=== PATIENT | female | born 1955 | race Caucasian/White ===

== ENCOUNTER 2019-07-24 18:50 | Emergency (ER) | payer MEDICARE, BC ==
[2019-07-24] MEDS ORDERED: Ondansetron 4 MG Tab.DIS PO ONE (18:55)
[2019-07-24] MEDS ORDERED: Lactated Ringers 1,000 ML IV SCH (19:15)
--- NOTE | 2019-07-24 19:28 | EDM.PDOC ---
ED HPI GENERAL MEDICAL PROBLEM - General Chief Complaint: Fever Stated Complaint: HIGH FEVER, VOMITING Time Seen by Provider: 07/24/19 19:15 Source of Information: Reports: Patient, Old Records, RN History Limitations: Reports: No Limitations - History of Present Illness INITIAL COMMENTS - FREE TEXT/NARRATIVE: 64 yo female presents with fever and loose stools for about a week. Has not been to the clinic for this. Denies dizziness with standing. No cough or urinary sx's. Has been taking acetaminophen regularly. Had recent colon surgery in [facility]) to reconnect a portion of her large intestine. Stools have been loose since then. Talked with her surgeon by phone who felt this was likely viral. Onset: Gradual Duration: Week(s): (1), Constant Location: Reports: Generalized Quality: Reports: Ache (mild LLQ, ? due to her surgery) Severity: Moderate Improves with: Reports: Medication Worsens with: Reports: Other (unknown) Context: Reports: Other (See HPI) Associated Symptoms: Reports: Fever/Chills, Malaise, Other (loose stools). Denies: Chest Pain, Cough, Headaches, Nausea/Vomiting, Rash, Shortness of Breath Treatments FUR GRADER: Reports: Acetaminophen - Related Data Allergies Allergy/AdvReac Type Severity Reaction Status Date / Time propoxyphene [From Darvon] Allergy Vomiting Verified 07/24/19 19:00 Home Meds: Home Meds Acetaminophen [Non-Aspirin Extra Strength] 1,000 mg PO Q6H 07/24/19 [History] Past Medical History Gastrointestinal History: Reports: Colon Polyp, Diverticulosis - Past Surgical History GI Surgical History: Reports: Colon, Colonoscopy, Colostomy, Other (See Below) Other GI Surgeries/Procedures: colostomy reversal 07/13/2019 Female Surgical History: Reports: Oophorectomy Social & Family History - Tobacco Use Smoking Status *Q: Never Smoker - Caffeine Use Caffeine Use: Reports: Coffee - Recreational Drug Use Recreational Drug Use: Yes Recreational Drug Type: Reports: Marijuana/Hashish Recreational Drug Use Frequency: Daily ED ROS GENERAL - Review of Systems Review Of Systems: See Below Constitutional: Reports: No Symptoms, Fever, Malaise, Weakness, Fatigue. Denies : Diaphoresis HEENT: Reports: No Symptoms Respiratory: Reports: No Symptoms Cardiovascular: Reports: No Symptoms Endocrine: Reports: No Symptoms GI/Abdominal: Reports: Abdominal Pain (LLQ mild), Diarrhea. Denies: Black Stool , Bloody Stool, Constipation, Distension, Flatus, Hematemesis, Hematochezia, Melena, Nausea, Vomiting : Reports: No Symptoms Musculoskeletal: Reports: No Symptoms Skin: Reports: No Symptoms Neurological: Reports: No Symptoms ED EXAM, SEPSIS - Physical Exam Exam: See Below Exam Limited By: No Limitations General Appearance: Alert, WD/WN, No Apparent Distress Eye Exam: Bilateral Eye: Normal Inspection Ears: Normal External Exam, Normal Canal, Hearing Grossly Normal, Normal TMs Nose: Normal Inspection, No Blood Throat/Mouth: Normal Inspection, Normal Lips, Normal Oropharynx, Normal Voice, No Airway Compromise Head: Atraumatic, Normocephalic Neck: Normal Inspection Respiratory/Chest: No Respiratory Distress, Lungs Clear, Normal Breath Sounds, No Accessory Muscle Use Cardiovascular: Regular Rate, Rhythm, No Edema GI/Abdominal Exam: Normal Bowel Sounds, Soft, Non-Tender, No Distention, Other ( recent surgical would present, no redness.) Back: Normal Inspection. No: CVA Tenderness (R), CVA Tenderness (L) Extremities: Normal Inspection, Normal Range of Motion, Non-Tender, No Pedal Edema Neurological: Alert, Oriented, CN II-XII Intact, Normal Cognition, No Motor/ Sensory Deficits Psychiatric: Normal Affect, Normal Mood Skin: Warm, Dry, Intact, Normal Color, No Rash Lymphatic: Bilateral: No Adenopathy Course - Vital Signs Text/Narrative:: Dr. Espinoza accepted at [facility] @ 2150h, Surgeon. Last Recorded V/S: Last Vital Signs Temp 37.2 C 07/24/19 21:12 Pulse 110 H 07/24/19 21:12 Resp 18 07/24/19 21:12 BP 127/66 07/24/19 21:12 Pulse Ox 94 L 07/24/19 21:12 - Orders/Labs/Meds Orders: Active Orders 24 hr Category Date Time Status CULTURE BLOOD [BC] Stat Lab 07/24/19 19:40 Received CULTURE BLOOD [BC] Stat Lab 07/24/19 19:50 Received CULTURE URINE [RM] Stat Lab 07/24/19 21:49 Ordered Ciprofloxacin in D5W [Cipro in D5W 400 MG/200 ML] 400 Med 07/24/19 21:50 Ordered mg Premix Bag 1 bag IV ONETIME Iopamidol [Isovue-300 (61%)] Med 07/24/19 20:30 Active 92 ml IV . DIRECTED Lactated Ringers [Ringers, Lactated] 1,000 ml Med 07/24/19 19:15 Active IV BOLUS NS + KCl 20mEq/L [Normal Saline with 20 mEq KCl] 1,000 Med 07/24/19 21:15 Active ml IV ASDIRECTED Potassium Chloride [KCL 20 MEQ in Water 100 ML] 20 meq Med 07/24/19 20:04 Active Premix Bag 1 bag IV ONETIME Sodium Chloride 0.9% [Normal Saline] 70 ml Med 07/24/19 20:30 Active IV ASDIRECTED metroNIDAZOLE/Normal Saline [Flagyl 500 MG in NS 100 ML Med 07/24/19 21:33 Active ] 500 mg Premix Bag 1 bag IV ONETIME Medication Orders Lactated Ringer's (Ringers, Lactated) 1,000 mls @ 1,000 mls/hr IV BOLUS [facility] Last Admin: 07/24/19 19:33 Dose: 1,000 mls/hr Potassium Chloride 20 meq/ (Premix) 100 mls @ 50 mls/hr IV ONETIME ONE Stop: 07/24/19 22:03 Last Admin: 07/24/19 20:27 Dose: 50 mls/hr Sodium Chloride (Normal Saline) 70 mls @ 3.5 mls/sec IV ASDIRECTED [facility] Last Admin: 07/24/19 20:33 Dose: 3 mls/sec Potassium Chloride/Sodium Chloride (Normal Saline With 20 Meq Kcl) 1,000 mls @ 150 mls/hr IV ASDIRECTED [facility] Metronidazole 500 mg/ Premix 100 mls @ 100 mls/hr IV ONETIME ONE Stop: 07/24/19 22:32 Last Admin: 07/24/19 21:48 Dose: 100 mls/hr Ciprofloxacin/Dextrose 400 mg/ (Premix) 200 mls @ 200 mls/hr IV ONETIME ONE Stop: 07/24/19 22:49 Iopamidol (Isovue-300 (61%)) 92 ml IV . DIRECTED [facility] Last Admin: 07/24/19 20:33 Dose: 92 ml Labs: Laboratory Tests 07/24/19 07/24/19 07/24/19 Range/Units 19:32 19:32 19:32 WBC 20.3 H (4.5-11.0) K/uL RBC 3.58 (3.30-5.50) M/uL Hgb 10.8 L (12.0-15.0) g/dL Hct 33.1 L (36.0-48.0) % MCV 93 (80-98) fL MCH 30 (27-31) pg MCHC 33 (32-36) % Plt Count 495 H (150-400) K/uL Sodium 134 L (140-148) mmol/L Potassium 2.8 L* (3.6-5.2) mmol/L Chloride 96 L (100-108) mmol/L Carbon Dioxide 23 (21-32) mmol/L Anion Gap 17.8 H (5.0-14.0) mmol/L BUN 8 (7-18) mg/dL Creatinine 0.7 (0.6-1.0) mg/dL Est Cr Clr Drug Dosing 68.27 mL/min Estimated GFR (MDRD) > 60 (>60) Glucose 129 H (74-106) mg/dL Lactic Acid 1.2 (0.4-2.0) mmol/L Calcium 8.1 L (8.5-10.1) mg/dL Magnesium (1.8-2.4) mg/dL Urine Color (YELLOW) Urine Appearance (CLEAR) Urine pH (5.0-8.0) Ur Specific [place] (1.008-1.030) Urine Protein (NEGATIVE) mg/dL Urine Glucose (UA) (NEGATIVE) mg/dL Urine Ketones (NEGATIVE) mg/dL Urine Occult Blood (NEGATIVE) Urine Nitrite (NEGATIVE) Urine Bilirubin (NEGATIVE) Urine Urobilinogen (0.2-1.0) EU/dL Ur Leukocyte Esterase (NEGATIVE) Urine RBC (0-5) Urine WBC (0-5) Ur Epithelial Cells Amorphous Sediment Urine Bacteria Urine Mucus 07/24/19 07/24/19 Range/Units 20:04 20:13 WBC (4.5-11.0) K/uL RBC (3.30-5.50) M/uL Hgb (12.0-15.0) g/dL Hct (36.0-48.0) % MCV (80-98) fL MCH (27-31) pg MCHC (32-36) % Plt Count (150-400) K/uL Sodium (140-148) mmol/L Potassium (3.6-5.2) mmol/L Chloride (100-108) mmol/L Carbon Dioxide (21-32) mmol/L Anion Gap (5.0-14.0) mmol/L BUN (7-18) mg/dL Creatinine (0.6-1.0) mg/dL Est Cr Clr Drug Dosing mL/min Estimated GFR (MDRD) (>60) Glucose (74-106) mg/dL Lactic Acid (0.4-2.0) mmol/L Calcium (8.5-10.1) mg/dL Magnesium 1.7 L (1.8-2.4) mg/dL Urine Color Yellow (YELLOW) Urine Appearance Cloudy A (CLEAR) Urine pH 6.0 (5.0-8.0) Ur Specific [place] 1.020 (1.008-1.030) Urine Protein 100 H (NEGATIVE) mg/dL Urine Glucose (UA) Negative (NEGATIVE) mg/dL Urine Ketones 40 H (NEGATIVE) mg/dL Urine Occult Blood Moderate H (NEGATIVE) Urine Nitrite Negative (NEGATIVE) Urine Bilirubin Small H (NEGATIVE) Urine Urobilinogen 0.2 (0.2-1.0) EU/dL Ur Leukocyte Esterase Small H (NEGATIVE) Urine RBC 5-10 H (0-5) Urine WBC 20-30 H (0-5) Ur Epithelial Cells Few Amorphous Sediment Not seen Urine Bacteria Many Urine Mucus Few Meds: Medications Generic Name Dose Route Start Last Admin Trade Name Freq PRN Reason Stop Dose Admin Lactated Ringer's 1,000 mls @ 1,000 mls/hr 07/24/19 19:15 07/24/19 19:33 Ringers, Lactated IV 1,000 mls/hr BOLUS ROMAN Administration Potassium Chloride 20 meq/ 100 mls @ 50 mls/hr 07/24/19 20:04 07/24/19 20:27 Premix IV 07/24/19 22:03 50 mls/hr ONETIME ONE Administration Sodium Chloride 70 mls @ 3.5 mls/sec 07/24/19 20:30 07/24/19 20:33 Normal Saline IV 3 mls/sec ASDIRECTED ROMAN Administration Potassium Chloride/Sodium Chloride 1,000 mls @ 150 mls/hr 07/24/19 21:15 Normal Saline With 20 Meq Kcl IV ASDIRECTED ROMAN Metronidazole 500 mg/ Premix 100 mls @ 100 mls/hr 07/24/19 21:33 07/24/19 21: 48 IV 07/24/19 22:32 100 mls/hr ONETIME ONE Administration Ciprofloxacin/Dextrose 400 mg/ 200 mls @ 200 mls/hr 07/24/19 21:50 Premix IV 07/24/19 22:49 ONETIME ONE Iopamidol 92 ml 07/24/19 20:30 07/24/19 20:33 Isovue-300 (61%) IV 92 ml . DIRECTED ROMAN Administration Discontinued Medications Generic Name Dose Route Start Last Admin Trade Name Freq PRN Reason Stop Dose Admin Lidocaine HCl 2 ml 07/24/19 20:08 07/24/19 20:28 Xylocaine-Mpf 1% INJECT 07/24/19 20:09 2 ml ONETIME ONE Administration Ondansetron HCl 4 mg 07/24/19 18:55 07/24/19 19:33 Zofran Odt PO 07/24/19 18:56 4 mg ONETIME ONE Administration Sodium Chloride 10 ml 07/24/19 20:17 07/24/19 20:33 Saline Flush FLUSH 07/24/19 20:18 10 ml ONETIME ONE Administration - Radiology Interpretation Free Text/Narrative:: CT abd/pelvis with IV contrast-IMPRESSION: 1. Status post rectosigmoid surgery with wide dehiscence at the anastomosis with direct communication to a large pelvic abscess measuring up to 15.3 centimeters in maximal diameter. Results called to Dr. Jensen at 2113 on 07/24/[address] note that all CT scans at this facility use dose modulation, iterative reconstruction, and/or weight-based dosing when appropriate to reduce radiation dose to as low as reasonably achievable. Dictated by Anibal Parra MD @ Jul 24 2019 9:02PM CT Results Date: 07/24/19 CT Results Time: 21:16 Departure - Departure Time of Disposition: 22:15 Disposition: DC/Tfer to Acute Hospital 02 Condition: Poor Clinical Impression: Pelvic abscess, Hypokalemia Elevated WBC count Qualifiers: Leukocytosis type: unspecified Qualified Code(s): D72.829 - Elevated white blood cell count, unspecified - Discharge Information *PRESCRIPTION DRUG MONITORING PROGRAM REVIEWED*: Not Applicable *COPY OF PRESCRIPTION DRUG MONITORING REPORT IN PATIENT FERNANDO: Not Applicable Referrals: PCP,None [Primary Care Provider] - Forms: ED Department Discharge Sepsis Event Note - Evaluation Sepsis Screening Result: No Definite Risk - Focused Exam Vital Signs: Vital Signs Temp Pulse Resp BP Pulse Ox 07/24/19 21:12 37.2 C 110 H 18 127/66 94 L 07/24/19 20:42 109 H 17 143/69 H 95 07/24/19 19:01 37.7 C 121 H 17 113/56 L 95 Date Exam was Performed: 07/24/19 Time Exam was Performed: 21:52 - My Orders Last 24 Hours: My Active Orders 07/24/19 19:15 Lactated Ringers [Ringers, Lactated] 1,000 ml IV BOLUS 07/24/19 19:40 CULTURE BLOOD [BC] Stat 07/24/19 19:50 CULTURE BLOOD [BC] Stat 07/24/19 20:04 Potassium Chloride [KCL 20 MEQ in Water 100 ML] 20 meq Premix Bag 1 bag IV ONETIME 07/24/19 20:30 Iopamidol [Isovue-300 (61%)] 92 ml IV . DIRECTED Sodium Chloride 0.9% [Normal Saline] 70 ml IV ASDIRECTED 07/24/19 21:15 NS + KCl 20mEq/L [Normal Saline with 20 mEq KCl] 1,000 ml IV ASDIRECTED 07/24/19 21:33 metroNIDAZOLE/Normal Saline [Flagyl 500 MG in NS 100 ML] 500 mg Premix Bag 1 bag IV ONETIME 07/24/19 21:49 CULTURE URINE [RM] Stat 07/24/19 21:50 Ciprofloxacin in D5W [Cipro in D5W 400 MG/200 ML] 400 mg Premix Bag 1 bag IV ONETIME - Assessment/Plan Last 24 Hours: My Active Orders 07/24/19 19:15 Lactated Ringers [Ringers, Lactated] 1,000 ml IV BOLUS 07/24/19 19:40 CULTURE BLOOD [BC] Stat 07/24/19 19:50 CULTURE BLOOD [BC] Stat 07/24/19 20:04 Potassium Chloride [KCL 20 MEQ in Water 100 ML] 20 meq Premix Bag 1 bag IV ONETIME 07/24/19 20:30 Iopamidol [Isovue-300 (61%)] 92 ml IV . DIRECTED Sodium Chloride 0.9% [Normal Saline] 70 ml IV ASDIRECTED 07/24/19 21:15 NS + KCl 20mEq/L [Normal Saline with 20 mEq KCl] 1,000 ml IV ASDIRECTED 07/24/19 21:33 metroNIDAZOLE/Normal Saline [Flagyl 500 MG in NS 100 ML] 500 mg Premix Bag 1 bag IV ONETIME 07/24/19 21:49 CULTURE URINE [RM] Stat 07/24/19 21:50 Ciprofloxacin in D5W [Cipro in D5W 400 MG/200 ML] 400 mg Premix Bag 1 bag IV ONETIME
[2019-07-24] MEDS ORDERED: Potassium Chloride 20 MEQ in Premix Bag 1 BAG IV ONE (20:04)
[2019-07-24] MEDS ORDERED: Sodium Chloride 0.9% 10 ML Syringe FLUSH ONE (20:17)
[2019-07-24] MEDS ORDERED: Iopamidol 612 MG/ML 100 ML Bottle IV SCH (20:30)
[2019-07-24] MEDS ORDERED: NS + KCl 20mEq/L 1,000 ML IV SCH (21:15)
--- NOTE | 2019-07-24 21:16 | CRLCT ---
INDICATION: Recent abdominal surgery, leukocytosis, fever and pain. TECHNIQUE: Axial images were obtained from the diaphragm to the pubic symphysis. Reformats were obtained in the coronal and sagittal plane. IV Contrast: 92 cc Isovue-300 Oral Contrast: None COMPARISON: None. FINDINGS: Lower chest: Small hiatal hernia. Minimal basilar discoid atelectasis. Liver: Unremarkable. Normal in size and attenuation. No masses. Gallbladder and bile ducts: Unremarkable. No stones or inflammation. No biliary dilatation. Spleen: Unremarkable. Normal in size without mass. Pancreas: Unremarkable. No mass or inflammation. Adrenal glands: Unremarkable. No nodules. Kidneys: Unremarkable. No masses, stones, or hydronephrosis. Vasculature: Unremarkable. GI tract: The patient is status post rectosigmoid surgery with a suture line at this level. However, there is wide dehiscence of the colonic wall at the anastomosis with direct communication to a large pelvic abscess (2, 99; 3, 46). Abscess is a mixture of air, stool as well as fluid. There is a thick enhancing rind of the abscess. This abscess involves the majority of the pelvis measuring 15.3 x 12.7 x 11.0 centimeters (2, 94). There is adjacent associated fat stranding as well as edema within the mesentery. No dilated loops of large or small intestine. Pelvis: Unremarkable. Bones: Mild degenerative disc disease lumbar spine. IMPRESSION: 1. Status post rectosigmoid surgery with wide dehiscence at the anastomosis with direct communication to a large pelvic abscess measuring up to 15.3 centimeters in maximal diameter. Results called to Dr. Jensen at 2113 on 07/24/2019 Please note that all CT scans at this facility use dose modulation, iterative reconstruction, and/or weight-based dosing when appropriate to reduce radiation dose to as low as reasonably achievable. Dictated by Anibal Parra MD @ Jul 24 2019 9:02PM Signed by Dr. Anibal Parra @ Jul 24 2019 9:14PM
[2019-07-24] MEDS ORDERED: metroNIDAZOLE/Normal Saline 500 MG in Premix Bag 1 BAG IV ONE (21:33)
[2019-07-24] MEDS ORDERED: Ciprofloxacin in D5W 400 MG in Premix Bag 1 BAG IV ONE ×2 (21:50)
[2019-07-24] MEDS ORDERED: traMADol 50 MG Tab PO ONE (22:27)
[2019-07-24] MEDS ORDERED: Ondansetron 4 MG/2 ML SDV IVPUSH ONE (22:31)
[2019-07-24] MEDS ORDERED: Ondansetron 4 MG/2 ML SDV ONE (22:33)
== END 2019-07-24 22:52 ==
LOC: JP.ED 18:50
DX: N73.9 Female pelvic inflammatory disease, unspecified (principal); E87.6 Hypokalemia; D72.829 Elevated white blood cell count, unspecified; Z90.49 Acquired absence of other specified parts of digestive tract; Z88.8 Allergy status to other drugs, medicaments and biological substances
CPT/HCPCS: 36415; 74177; 80048; 81001; 83605; 83735; 85027; 87040; 87086; 96361; 96365; 96366; 96368; 96375; 99285; A9270; J0744; J2001; J2405; J3480; J3490; J7050; J7120; Q9967

== ENCOUNTER 2020-02-27 15:21 | Emergency (ER) | payer MEDICARE, BC ==
--- NOTE | 2020-02-27 17:17 | EDM.PDOC ---
ED HPI GENERAL MEDICAL PROBLEM - General Chief Complaint: Back Pain or Injury Stated Complaint: BACKACHE, LOW FEVER Time Seen by Provider: 02/27/20 17:17 Source of Information: Reports: Patient History Limitations: Reports: No Limitations - History of Present Illness INITIAL COMMENTS - FREE TEXT/NARRATIVE: PT ARRIVED AFTER SHE HAD PAIN BETWEEN HER SHOULDER BLADES AND BECAME VERY DIAPHORETIC. sHE FELT LIKE SHE WAS GOING TO PASS OUT. sHE HAS BEEN RUNNING A FEVER ON AND OFF AND HAS CONCERN ABOT COVID. sHE WAS NOT MARKEDLY SOB. Onset: Today, Sudden Duration: Minutes:, Other ( THIS EPISODE LASTED ABOUT 5 MINUTES. ) Location: Reports: Back, Other (PT HAD PAIN BETWEEN HER SHOULDER BLADES. ) Associated Symptoms: Reports: Diaphoresis, Malaise, Other (PT HAD THE FEELING SHE WAS GOING TO PASS OUT. ) - Related Data Allergies Allergy/AdvReac Type Severity Reaction Status Date / Time propoxyphene [From Darvon] Allergy Vomiting Verified 02/27/20 15:57 Home Meds: Home Meds Acetaminophen [Non-Aspirin Extra Strength] 1,000 mg PO Q6H 07/24/19 [History] Past Medical History HEENT History: Reports: Impaired Vision Gastrointestinal History: Reports: Colon Polyp, Diverticulosis UNIT CLERK History: Reports: Endometriosis - Past Surgical History Head Surgeries/Procedures: Reports: None GI Surgical History: Reports: Colon, Colonoscopy, Colostomy, Other (See Below) Other GI Surgeries/Procedures: colostomy reversal 07/13/2019 Female Surgical History: Reports: Oophorectomy Dermatological Surgical History: Reports: None Social & Family History - Tobacco Use Tobacco Use Status *Q: Former Tobacco User Used Tobacco, but Quit: Yes Month/Year Tobacco Last Used: 1994 Second Hand Smoke Exposure: No - Caffeine Use Caffeine Use: Reports: Coffee - Recreational Drug Use Recreational Drug Use: Yes Drug Use in Last 12 Months: Yes Recreational Drug Type: Reports: Marijuana/Hashish Recreational Drug Use Frequency: Daily ED ROS GENERAL - Review of Systems Review Of Systems: See Below Constitutional: Reports: Malaise, Diaphoresis HEENT: Reports: No Symptoms Respiratory: Reports: Shortness of Breath, Other ( THE SHORTNESS OF BREATH WAS VERY BRIEF. ) Cardiovascular: Reports: Lightheadedness Endocrine: Reports: No Symptoms : Reports: No Symptoms Musculoskeletal: Reports: No Symptoms Skin: Reports: No Symptoms ED EXAM, UPPER BACK/NECK PAIN - Physical Exam Exam: See Below Text/Narrative:: PT ARRIVED FEELING LIKE SHE HAD A SUDDEN ONSET OF PAIN BETWEEN HER SHOULDER BLADES. sHE FELT MILDLY SOB. sHE WAS VERY DIAPHORETIC. sHE HAS HAD MULTIPLE SURGERIES IN THE LAST FEW MIONTHES. sHE DID NOT HAVE CHEST PAIN. Exam Limited By: No Limitations General Appearance: Alert, Anxious, Other (PT HAS NO PAIN AT THIS TIME. ) Ears Exam: Normal TMs Nose Exam: Normal Inspection Throat/Mouth Exam: Normal Inspection Head Exam: Atraumatic Neck Exam: Non-Tender Cardiovascular/Respiratory: Regular Rate, Rhythm GI/Abdominal: Soft, Non-Tender (Female) Exam: Deferred Rectal (Female) Exam: Deferred Back Exam: Normal Inspection Extremities: Normal Inspection Neurologic: Alert, Oriented x 3 Course - Vital Signs Last Recorded V/S: Last Vital Signs Temp 36.6 C 02/27/20 15:57 Pulse 85 02/27/20 15:57 Resp 16 02/27/20 15:57 BP 147/57 H 02/27/20 15:57 Pulse Ox 96 02/27/20 15:57 Orthostatic Blood Pressure [ 139/70 Standing] Orthostatic Blood Pressure [ 124/59 Sitting] Orthostatic Blood Pressure [ 150/57 Supine] - Orders/Labs/Meds Orders: Active Orders 24 hr Category Date Time Status Chest 1V Frontal [CR] Stat Exams 02/27/20 17:21 Taken CORONAVIRUS COVID-19, KENNETH Stat Lab 02/27/20 19:04 Received EKG 12 Lead [EK] Routine Ther 02/27/20 17:15 Ordered Labs: Laboratory Tests 02/27/20 02/27/20 02/27/20 Range/Units 15:38 17:25 17:25 WBC 11.1 H (4.5-11.0) K/uL RBC 4.06 (3.30-5.50) M/uL Hgb 12.0 (12.0-15.0) g/dL Hct 37.4 (36.0-48.0) % MCV 92 (80-98) fL MCH 30 (27-31) pg MCHC 32 (32-36) % Plt Count 313 (150-400) K/uL Neut % (Auto) 83 H (36-66) % Lymph % (Auto) 11 L (24-44) % [place] % (Auto) 5 (2-6) % Eos % (Auto) 1 L (2-4) % Baso % (Auto) 0 (0-1) % Sodium 134 L (140-148) mmol/L Potassium 3.9 (3.6-5.2) mmol/L Chloride 99 L (100-108) mmol/L Carbon Dioxide 28 (21-32) mmol/L Anion Gap 10.9 (5.0-14.0) mmol/L BUN 12 (7-18) mg/dL Creatinine 1.0 (0.6-1.0) mg/dL Est Cr Clr Drug Dosing 47.79 mL/min Estimated GFR (MDRD) 55 L (>60) Glucose 106 (74-106) mg/dL Calcium 8.9 (8.5-10.1) mg/dL Total Bilirubin 0.4 (0.2-1.0) mg/dL AST 56 H (15-37) U/L ALT 45 (12-78) U/L Alkaline Phosphatase 89 (46-116) U/L Troponin I < 0.017 (0.000-0.056) ng/mL Total Protein 7.7 (6.4-8.2) g/dL Albumin 3.3 L (3.4-5.0) g/dL Globulin 4.4 H (2.3-3.5) g/dL Albumin/Globulin Ratio 0.8 L (1.2-2.2) Urine Color Yellow (YELLOW) Urine Appearance Clear (CLEAR) Urine pH 7.0 (5.0-8.0) Ur Specific [place] 1.025 (1.008-1.030) Urine Protein Negative (NEGATIVE) mg/dL Urine Glucose (UA) Negative (NEGATIVE) mg/dL Urine Ketones Trace H (NEGATIVE) mg/dL Urine Occult Blood Negative (NEGATIVE) Urine Nitrite Negative (NEGATIVE) Urine Bilirubin Negative (NEGATIVE) Urine Urobilinogen 0.2 (0.2-1.0) EU/dL Ur Leukocyte Esterase Trace H (NEGATIVE) Urine RBC 0-5 (0-5) Urine WBC 0-5 (0-5) Ur Epithelial Cells Rare Amorphous Sediment Not seen Urine Bacteria Rare Urine Mucus Not seen - Re-Assessments/Exams Free Text/Narrative Re-Assessment/Exam: 02/27/20 18:58 PT HAD A NORMAL APPEARING EKG. HER TROP WAS NEG. . sHE HAS REMAINED STABLE AND HAS NOT HAD FURTHER PAIN. Departure - Departure Time of Disposition: 18:46 Disposition: Home, Self-Care 01 Condition: Fair Clinical Impression: Back pain, Diaphoresis - Discharge Information Instructions: Acute Back Pain, Adult Referrals: Tarik Garzon MD [Primary Care Provider] - Forms: ED Department Discharge Care Plan Goals: PT HAD A NORMAL EKG, TROP, CHEST XRAY AND NO FURTHER PAIN, tHE BACK PAIN WAS BETWEEN HER SHOULDER BLADES. THIS COULD BE aTYPICAL [place]-- A STRESS TEST MAY BE IN ORDER. PT HAS A COVID TEST PENDING, FOLLOW UP APPT WITH dR Hernandez, RTC IF FURTHER SYMPTOMS. Sepsis Event Note (ED) - Evaluation Sepsis Screening Result: No Definite Risk - My Orders Last 24 Hours: My Active Orders 02/27/20 17:15 EKG 12 Lead [EK] Routine 02/27/20 17:21 Chest 1V Frontal [CR] Stat 02/27/20 19:04 CORONAVIRUS COVID-19, KENNETH Stat - Assessment/Plan Last 24 Hours: My Active Orders 02/27/20 17:15 EKG 12 Lead [EK] Routine 02/27/20 17:21 Chest 1V Frontal [CR] Stat 02/27/20 19:04 CORONAVIRUS COVID-19, KENNETH Stat
--- NOTE | 2020-02-28 09:12 | CR ---
CHEST: Portable 02/27/2020 at 5:54 PM CLINICAL HISTORY:Back pain COMPARISON:None FINDINGS: The heart size, pulmonary vascularity and hilar structures are normal. No infiltrate effusion or pneumothorax is seen. There are atherosclerotic changes in the aorta. IMPRESSION: No acute cardiopulmonary process.
== END 2020-02-27 18:59 | disposition home or self-care (01) ==
LOC: JP.ED 15:21
DX: M54.5 Low back pain (principal); R61 Generalized hyperhidrosis; Z88.5 Allergy status to narcotic agent; Z87.891 Personal history of nicotine dependence
CPT/HCPCS: 36415; 71045; 80053; 81001; 84484; 85025; 93005; 99284; U0002